=== PATIENT | female | born 1995 | race Hispanic/Latino ===

== ENCOUNTER 2017-07-05 12:28 | Emergency (ER) | payer MEDICAID, OTHER | END 2017-07-05 13:27 | disposition home or self-care (01) | LOC: EDH 12:28 | DX: J06.9 Acute upper respiratory infection, unspecified (principal) ==

== ENCOUNTER 2022-02-04 19:59 | Emergency (ER) | payer OTHER ==
[~2022-02-04] VITALS: Ht 165.1 cm; Wt 83.9 kg
[2022-02-04 21:07] VITALS: BP 140/85
== END 2022-02-04 21:14 | disposition home or self-care (01) ==
LOC: EDH 19:59
DX: F41.9 Anxiety disorder, unspecified (principal); I10 Essential (primary) hypertension; E11.9 Type 2 diabetes mellitus without complications; Z90.89 Acquired absence of other organs